=== PATIENT | female | born 1985 | race Caucasian/White ===

== ENCOUNTER 2017-01-31 07:26 | Inpatient (IN) | payer BC ==
[2017-01-24 09:50] LABS: BASOPHILS 0.2 %; BASOPHILS ABSOLUTE 0.01 10/3/uL (0.0-0.16); EOSINOPHILS 0.9 %; EOSINOPHILS ABSOLUTE 0.04 10/3/uL (0.0-0.53); HEMATOCRIT 38.6 % (36.0-48.0); HEMOGLOBIN 12.9 g/dL (12.0-16.0); IMMATURE GRANULOCYTES 0.2 %; IMMATURE GRANULOCYTES ABSOLUTE 0.01 10/3/uL (0.0-0.11); LYMPHOCYTES 30.4 %; LYMPHOCYTES ABSOLUTE 1.33 10/3/uL (0.67-4.30); MEAN CORPUS HGB CONC 33.4 g/dL (32.0-36.0); MEAN CORPUSCULAR HEMOGLOB 28.7 pg (26.0-34.0); MONOCYTES 5.5 %; MONOCYTES ABSOLUTE 0.24 10/3/uL (0.21-1.20); NEUTROPHILS 62.8 %; NEUTROPHILS ABSOLUTE 2.75 10/3/uL (2.02-8.40); PLATELET COUNT 264 10/3/uL (150-400); RBC DISTRIBUTION WIDTH 14.2 % (12.0-16.0); RED CELL COUNT 4.49 10/6/uL (4.0-5.6); WHITE BLOOD CELLS 4.4 10/3/uL (4.5-10.5)
[2017-01-24 09:51] LABS: MANUAL DIFF NO %
[2017-01-24 09:56] LABS: INTERNATIONAL NORMAL RATI 1.2 UNITS (-); PARTIAL THROMBO TIME 28.9 SEC (22.5-37.2)
[2017-01-24 10:36] LABS: A/G RATIO 1.1 (0.7-1.9); ALKALINE PHOSPHATASE 97 U/L (45-117); BUN (BLOOD UREA NITROGEN) 12 MG/DL (6-23); CALCIUM, SERUM 8.9 MG/DL (8.5-10.4); CHLORIDE, SERUM 106 MMOL/L (96-112); CHOL/HDL RATIO(NOT ORDER) 3.8 (0-5); CHOLESTEROL 142 MG/DL (< 200); CO2 (CARBON DIOXIDE) 30 MMOL/L (24-34); CREATININE 0.77 MG/DL (0.55-1.02); GFR AFRICAN AMERICAN 118 ML/MIN (>=60); GFR NON AFRICAN AMERICAN 102 ML/MIN (>=60); GLOBULIN 3.8 G/DL (2.5-4.1); GLUCOSE, SERUM 102 MG/DL (60-99); HDL CHOLESTEROL 37 MG/DL (> 49); IRON, SERUM 45 MCG/DL (35-150); LDL CHOLESTEROL 67 MG/DL (< 130); NON-HDL CHOLESTEROL 105 MG/DL (< 160); POTASSIUM, SERUM 4.2 MMOL/L (3.5-5.3); SGOT(AST) 21 U/L (5-40); SGPT(ALT) 33 U/L (5-65); SODIUM, SERUM 141 MMOL/L (135-148); TOTAL BILIRUBIN 0.6 MG/DL (0-1.2); TOTAL PROTEIN 7.8 G/DL (6.0-8.5); TRIGLYCERIDE 192 MG/DL (< 150)
[2017-01-24 10:37] LABS: FOLATE 39.4 NG/ML (>5.2)
[2017-01-24 11:59] LABS: ASCORBIC ACID (UR NOT ORDER) NEGATIVE (NEG); BILIRUBIN, URINE NEGATIVE (NEG); KETONE, URINE NEGATIVE (NEG); LEUKOCYTE ESTERASE(NOT OR NEG (NEG); WBC (NOT ORDERED) (RFLEX) 1 (0-5)
--- NOTE | ~2017-01-31 | OP ---
Record Of Operation [facility] [address] [place]. [address] NAME: GERARD BRANHAM : 83 STATUS : ADM IN PAT#: [id number] AGE: 31 ADM/REG DATE : 01/31/17 MR#: [id number] REPORT SERV DATE: 01/31/17 DICTATED BY: JENNIFER JANE DATE: 01/31/17 REPORT STATUS : Draft TRANSCRIBED BY: MODL DATE: 01/31/17 DATE OF PROCEDURE: PREOPERATIVE DIAGNOSIS: Morbid obesity. POSTOPERATIVE DIAGNOSIS: Morbid obesity. OPERATION: Laparoscopic sleeve gastrectomy. SURGEON: Jennifer Jane M.D. ANESTHESIA: General endotracheal. COMPLICATIONS: None. INDICATION OF THE OPERATION: This is a 31-year-old white female with morbid obesity with a BMI of 52.4 and a weight of 310 pounds and associated polycystic ovarian syndrome, gastroesophageal reflux disease, arthropathy, and anxiety. DESCRIPTION OF OPERATION: The patient was taken to the operating room, and after adequate anesthesia, was prepped and draped in a sterile manner. A total of 5 trocars were placed in the upper abdomen. Carefully we the left lobe of the liver. Identified the upper stomach anatomy. We did remove some of the epiphrenic fat pad on top of the stomach using the Harmonic Scalpel and then we entered the lesser sac at the level of the lower body of the stomach next to the greater curvature and started dissecting the greater curvature with the Harmonic Scalpel all the way up to the fundus and mobilized the fundus all the way up to the left musa. Left musa was completely dissected posteriorly and all the posterior adhesions were taken down with the Harmonic Scalpel and then continuous dissection with the Harmonic Scalpel on the greater curvature all the way down to the distal antrum to about 3 cm or so from the pylorus. Then, we introduced a 36-Turkish blunt-tip bougie suction catheter all the way down to the distal antrum, put it on suction to delineate well the stomach and started stapling about 5 cm from the pylorus using the echelon automatic stapler with a green load and stapler reinforcement using the SeamGuard. We used a total of 5 staplers from the bottom to the top following the bougie. Staple line looked intact. There was no evidence of bleeding or oozing. Then, we tacked the greater omentum into the staple line at the top, middle, and lower portion with interrupted Vicryl 2-0 sutures to stabilize the orientation of the sleeve pouch. Then we removed with a calibration tube and we put it in and out to verify there was no evidence of obstruction and then removed the stomach specimen through the 15 mm trocar site after we stretched it with a Rose Mary and then closed that the fascia defect with an EFX fascial closure device using a Vicryl #0. Removed all the trocars and liver retractor under direct visualization and closed all the incisions with subcuticular Monocryl 4-0. The patient tolerated the procedure well. There were not any problems. Record Of Operation [address] [address] NAME: GERARD BRANHAM ANN : 83 STATUS : ADM IN [facility]#: [id number] AGE: 31 ADM/REG DATE : 01/31/17 MR#: [id number] REPORT SERV DATE: 01/31/17 DICTATED BY: JENNIFER JANE DATE: 01/31/17 REPORT STATUS : Draft TRANSCRIBED BY: TONI DATE: 01/31/17 CONNOR/TONI Jennifer Capone M.D. / [id number] CC: Jennifer Jane M.D.
--- NOTE | ~2017-01-31 | HP ---
History And Physical [place] [address] [facility] [place]. [address] NAME: GERARD BRANHAM : 83 STATUS : PRE IN PAT#: [id number] AGE: 31 ADM/REG DATE : MR#: [id number] REPORT SERV DATE: 01/26/17 DICTATED BY: JENNIFER JANE DATE: 01/26/17 REPORT STATUS : Draft TRANSCRIBED BY: MODL DATE: 01/26/17 DATE OF ADMISSION: 01/31/2017 DICTATED BY: Yolie Rodriguez APRN, HOLLIE TELLES CHIEF COMPLAINT: Morbid obesity. HISTORY OF PRESENT ILLNESS: The patient is a 31-year-old pleasant female, presenting for consideration for bariatric surgery, specifically the sleeve gastrectomy for the treatment of morbid obesity having a BMI of 52.4 and a weight of 310 pounds in the presence of comorbidities including polycystic ovarian syndrome, arthropathy, and reflux. She has considered surgical intervention for many years after struggling with her weight since childhood. She reports a maximum weight of 338 pounds in 2016 and has tried multiple attempts at weight loss in the past including Weight Watchers, self diets, and exercise, and has tried diet. She has successfully lost 75 pounds through her previous efforts. PAST MEDICAL HISTORY: The patient's past medical history is significant for polycystic ovarian syndrome; GERD treated with 1 prescription medication; arthropathy; and anxiety. PAST SURGICAL HISTORY: The patient underwent a partial laparoscopic hysterectomy in 2006. FAMILY HISTORY: The patient's mother has a history of morbid obesity, with recent bariatric surgery, essential hypertension and father has a significant history of morbid obesity, diabetes, and essential hypertension. SOCIAL HISTORY: The patient denies smoking history but reports social ETOH use. She is currently employed as a furniture mover driver and is . MEDICATIONS: Bupropion HCL XL 150 mg; metformin ER 500 mg tab; and omeprazole 40 mg capsule. REVIEW OF SYSTEMS: CONSTITUTIONAL: The patient denies weight loss or weight gain, it is unintentional and unexplained. Denies fatigue, fever, loss of appetite, or nighttime sweating. EYES: She reports no eye complaints or irritation but currently wears glasses. HEAD, EARS, NOSE, AND THROAT: She reports no difficulty hearing or ear pain. Denies sore throat, oral abnormalities, teeth problems, or hoarseness. BREASTS: Denies masses, lumps, nipple discharge, or rashes. CARDIOVASCULAR: Denies chest pain or shortness of breath when walking, palpitations, calf pain with exercise, or hypertension. RESPIRATORY: Denies cough, wheezing, shortness of breath, coughing up blood, sleep apnea, or COPD. GASTROINTESTINAL: The patient reports GERD with controlled symptoms with prescription medications and frequent diarrhea. Denies abdominal pain, vomiting, dyspepsia, change in bowel habits, blood in stool, hepatitis, or liver disease. GENITOURINARY: Denies blood in urine, menstrual changes, painful urination, or vaginal discharge. INTEGUMENTARY: Denies rash, itching, lesions discharge, or change in skin color. History And Physical [address] [address] NAME: GERARD BRANHAM : 83 STATUS : PRE IN [facility]#: [id number] AGE: 31 ADM/REG DATE : MR#: [id number] REPORT SERV DATE: 01/26/17 DICTATED BY: JENNIFER JANE DATE: 01/26/17 REPORT STATUS : Draft TRANSCRIBED BY: TONI DATE: 01/26/17 NEUROLOGICAL: Denies numbness or tingling. MUSCULOSKELETAL: Reports left knee arthropathy. Denies muscle aches, muscle weakness, or back pain. PSYCHIATRIC: The patient does report a history of anxiety, well controlled but denies depression, alcohol abuse, or sleep disturbances. PHYSICAL EXAMINATION: CONSTITUTIONAL: GENERAL APPEARANCE: The patient is a 31-year-old pleasant, well-nourished, and morbidly obese female, no acute distress, ambulating normally. HEAD: Pupils are equal, round, and reactive to light. EAR, NOSE, AND THROAT: Within normal limits. NECK: Supple. Trachea midline with no masses. CARDIOVASCULAR: Heart auscultation, regular rate and rhythm. LUNGS: Respiratory effort without dyspnea, auscultation. No wheezes, rales, crackles, or rhonchi. Breath sounds are normal and clear to auscultation. ABDOMEN: Inspection and palpation, no tenderness, guarding, masses, rebound tenderness. Abdomen is soft, nondistended, but obese. Bowel sounds are normal. PSYCHIATRIC: Good judgment and insight. MENTAL STATUS: Normal mood and affect. The patient is active and alert. Oriented to time, place, and person. LABS: The patient has completed preadmission testing labs according to protocol. Bariatric GI air study shows no mention of hiatal hernia and is an unremarkable upper GI exam. White blood count is 4.4, protime is 15.0 with INR of 1.2, PTT is 28.9, glucose 102. Lipid profile shows triglyceride elevation at 192. TSH 2.010. Urinalysis is normal. ASSESSMENT AND PLAN: This patient will be admitted to undergo bariatric surgery, specifically the sleeve gastrectomy for the treatment of morbid obesity, having a BMI of 52.4 and a weight of 310 pounds with associated comorbidities. According to her current height and weight, she has 187.5 pounds of excess weight. The patient fulfills the [place] [employer] guidelines for bariatric surgery according to the 1991 consensus having either BMI of more than 40 kg/m2 or BMI between 35 to 40 kg/m2 with associated comorbidities. She has been overweight for at least 5 years and tried to lose weight several times in the past and has failed to maintain weight loss even with physician supervised programs. Surgical weight loss options were presented to the patient including the Tomás-en-Y gastric bypass, biliopancreatic diversion with duodenal switch, sleeve gastrectomy, and adjustable gastric banding. This patient has chosen a sleeve gastrectomy surgery because of the features of no need for adjustments, less invasive than the Tomás-en-Y gastric bypass with less risk of infection. The gastric bypass was not an option for this patient because of the invasiveness of the procedure, the associated risk, and the type of complications. The sleeve gastrectomy surgery, in our experience, can give this patient an average of 60% of excess weight loss over the next 12 to 18 months. This patient is aware of the risks and complications associated with the procedure which include staple leak, bleeding obstruction and infection which were discussed in length. Also the patient understands the importance of followup in order to achieve good results. Finally the patient has completed comprehensive education and prior authorization approval process with her insurance company. History And Physical [address] [address] NAME: GERARD BRANHAM ANN : 83 STATUS : PRE IN PAT#: [id number] AGE: 31 ADM/REG DATE : MR#: [id number] REPORT SERV DATE: 01/26/17 DICTATED BY: JENNIFER JANE DATE: 01/26/17 REPORT STATUS : Draft TRANSCRIBED BY: MODL DATE: 01/26/17 CONNOR/MODL Jennifer Capone M.D. / [id number] CC: Brandon Worrell M.D.
[~2017-01-31 07:26] MED LIST: *DENIES
== END 2017-02-01 11:18 | disposition home or self-care (01) | DRG 621 ==
LOC: SDC/OF 07:26 → PACU 13:20 → 2SO 14:15
PROVIDERS: Surgery
PROC: 0DB64Z3 Excision of Stomach, Percutaneous Endoscopic Approach, Vertical (ICD-10-PCS; principal; 2017-01-31 10:00)
DX: E66.01 Morbid (severe) obesity due to excess calories (principal); E28.2 Polycystic ovarian syndrome; Z68.43 Body mass index [BMI] 50.0-59.9, adult; M19.90 Unspecified osteoarthritis, unspecified site; K21.9 Gastro-esophageal reflux disease without esophagitis; F41.9 Anxiety disorder, unspecified; Z98.890 Other specified postprocedural states; Z82.49 Family history of ischemic heart disease and other diseases of the circulatory system; Z83.3 Family history of diabetes mellitus
CPT/HCPCS: 74246; 80053; 80061; 81001; 82607; 82746; 83036; 83540; 84443; 85025; 85610; 85730; 88307; 93005; A9270-GY; C9113; J0690; J1170; J2250; J2405; J2550; J2710; J2795; J3010